=== PATIENT | female | born 1980 | race Caucasian/White ===

== ENCOUNTER 2022-06-10 15:21 | Outpatient (CLI) | payer OTHER, SELFPAY ==
--- NOTE | ~2022-06-10 | MM_ITS ---
EXAMINATION: MM screening andrea BI w jacques HISTORY: Screening TECHNIQUE: Craniocaudal and mediolateral oblique 3-D tomosynthesis images were obtained and synthetic 2-D images were generated. CAD analysis was submitted and interpreted. COMPARISON: No prior mammogram is available for comparison at this institution. BREAST PARENCHYMAL COMPOSITION: There are scattered areas of fibroglandular density. FINDINGS: There are focal asymmetries in the upper outer quadrant of the right breast. There are no s uspicious masses, calcifications or architectural distortion in the left breast to suggest malignancy . IMPRESSION: 1. Right breast asymmetry, upper outer quadrant. 2. Additional mammographic views and possible breast ultrasound are recommended. BI-RADS Category 0: Incomplete: Needs additional imaging evaluation. Reviewed, dictated and finalized at location B. [employer] SAL[employer] REP IMPRESSION: 1. Right breast asymmetry, upper outer quadrant. 2. Additional mammographic views and possible breast ultrasound are recommended . BI-RADS Category 0: Incomplete: Needs additional imaging evaluation.
== END 2022-06-10 15:22 | disposition home or self-care (01) ==
LOC: ANHIMG 15:22
PROVIDERS: PCP Family Medicine; Visit Provider Nurse Practitioner
DX: Z12.31 Encounter for screening mammogram for malignant neoplasm of breast (principal); R92.8 Other abnormal and inconclusive findings on diagnostic imaging of breast
CPT/HCPCS: 77063; 77067

== ENCOUNTER 2022-06-13 10:56 | Outpatient (CLI) | payer OTHER, SELFPAY ==
[2022-06-13 20:46] LABS: Alanine Aminotransferase 16 U/L (6-35); Albumin Level 4.5 g/dL (3.5-5.1); Alkaline Phosphatase 86 U/L (38-126); Anion Gap 7 mmol/L (8-16); Aspartate Amino Transferase 37 U/L (14-36); Bilirubin,Total 0.5 mg/dL (0.2-1.3); Blood Urea Nitrogen 9 mg/dL (7-17); Carbon Dioxide 25 mmol/L (22-30); Chloride 106 mmol/L (98-107); Cholesterol 194 mg/dL (0-200); Estimated Glomerular Filt Rate > 60; Glucose 83 mg/dL (65-110); HDL Direct 52 mg/dL; Potassium 3.9 mmol/L (3.4-5.0); Sodium 138 mmol/L (137-145); Triglycerides 127 mg/dL (<150)
[2022-06-13 20:49] LABS: Hematocrit 42.3 % (37.0-47.0); Hemoglobin 13.5 g/dL (12.0-15.0); Mean Corpuscular HGB Conc 31.9 g/dl (32-36); Mean Platelet Volume 9.3 fl (7.4-10.4); Platelet Count Result 341 k/mm3 (150-375); Red Cell Distribution Width 13.2 % (11.5-14.5); White Blood Count 7.9 K/mm3 (4.5-10.0)
[2022-06-13 20:56] LABS: LDL Cholesterol Direct 87 mg/dL
[2022-06-13 21:11] LABS: Vitamin D 25 Hydroxy 65.3 ng/mL
== END 2022-06-13 10:57 | disposition home or self-care (01) ==
LOC: ANHBWCLAB 10:58
PROVIDERS: PCP Family Medicine; Visit Provider Family Medicine
DX: Z00.00 Encounter for general adult medical examination without abnormal findings (principal); G43.909 Migraine, unspecified, not intractable, without status migrainosus
CPT/HCPCS: 36415; 80053; 80061; 82306; 85027

== ENCOUNTER 2022-07-08 12:12 | Outpatient (CLI) | payer OTHER, SELFPAY ==
--- NOTE | ~2022-07-08 | MM_ITS ---
EXAMINATION: MM diagnostic andrea RT w jacques HISTORY: Focal asymmetry reported in upper outer quadrant of right breast on 06/10/2022 screening andrea mogram TECHNIQUE: Additional 3-D tomosynthesis images of the right breast were performed and synthetic 2-D i mages were generated. CAD analysis was submitted and interpreted. COMPARISON: 06/10/2022 bilateral screening mammogram FINDINGS: The focal asymmetry of concern in the posterior inner aspect of the outer right breast on 1 08/11/2021 craniocaudal projection is not reproduced on these supplemental images. No suspicious mass or architectural distortion is detected. IMPRESSION: 1. No mammographic evidence of malignancy 2. Routine annual mammographic screening is recommended BI-RADS Category 1: Negative Reviewed, dictated and finalized at location A. [employer]
== END 2022-07-08 12:13 | disposition home or self-care (01) ==
LOC: ANHIMG 12:13
PROVIDERS: PCP Family Medicine; Visit Provider Nurse Practitioner
DX: R92.8 Other abnormal and inconclusive findings on diagnostic imaging of breast (principal)
CPT/HCPCS: 77061; 77065; G0279

== ENCOUNTER 2022-07-16 09:20 | Outpatient (CLI) | payer OTHER, SELFPAY ==
[2022-07-16 20:31] LABS: Alanine Aminotransferase 43 U/L (6-35); Albumin Level 4.3 g/dL (3.5-5.1); Alkaline Phosphatase 113 U/L (38-126); Aspartate Amino Transferase 55 U/L (14-36); Bilirubin,Total 0.2 mg/dL (0.2-1.3)
[2022-07-16 21:06] LABS: Hepatitis B Surface Antigen Negative (Negative)
[2022-07-16 21:12] LABS: HAV RESULT Negative (Negative); Hepatitis B Core IgM Result Negative (Negative)
[2022-07-17 00:43] LABS: Hepatitis C Virus Antibody Negative (Negative)
== END 2022-07-16 09:21 | disposition home or self-care (01) ==
PROVIDERS: PCP Family Medicine; Visit Provider Family Medicine
DX: R74.01 Elevation of levels of liver transaminase levels (principal)
CPT/HCPCS: 36415; 80074; 80076

== ENCOUNTER 2022-07-30 08:42 | Outpatient (CLI) | payer OTHER, SELFPAY ==
--- NOTE | ~2022-07-30 | US_ITS ---
EXAMINATION: US abdomen limited DATE: 07/30/2022 09:10 INDICATION: Abnormal levels of other serum enzymes TECHNIQUE: Multiple grayscale and Doppler ultrasound images of the abdomen were obtained. COMPARISON: 07/01/2016 FINDINGS: The head and body of the pancreas are normal. The pancreatic tail is obscured by bowel gas. The liver is normal with normal echogenicity and echotexture. No surface nodularity. Normal hepatope jet flow in the main portal vein. The gallbladder is normal with no abnormal wall thickening, pericho lecystic fluid or stones. The normal common bile duct measures 3 mm. There was no sonographic Hill sign. IMPRESSION: 1. No sonographic correlate for the patient's symptoms. Reviewed, dictated and finalized at location L. BUNDLER
== END 2022-07-30 08:43 | disposition home or self-care (01) ==
PROVIDERS: PCP Family Medicine; Visit Provider Family Medicine
DX: R74.8 Abnormal levels of other serum enzymes (principal)
CPT/HCPCS: 76705

== ENCOUNTER 2023-06-17 10:20 | Outpatient (CLI) | payer OTHER, SELFPAY ==
[2023-06-17 19:53] LABS: Hematocrit 40.8 % (37.0-47.0); Hemoglobin 12.7 g/dL (12.0-15.0); Mean Corpuscular HGB Conc 31.1 g/dl (32-36); Mean Corpuscular Hemoglobin 28.3 pg (26-34); Mean Corpuscular Volume 91.1 fl (80-100); Mean Platelet Volume 9.5 fl (7.4-10.4); Platelet Count Result 366 k/mm3 (150-375); Red Blood Count 4.48 M/mm3 (4.2-5.4); Red Cell Distribution Width 13.8 % (11.5-14.5); White Blood Count 8.4 K/mm3 (4.5-10.0)
[2023-06-17 20:18] LABS: Alanine Aminotransferase 20 U/L (6-35); Albumin Level 3.9 g/dL (3.5-5.1); Alkaline Phosphatase 147 U/L (38-126); Anion Gap 6 mmol/L (8-16); Aspartate Amino Transferase 32 U/L (14-36); Bilirubin,Total 0.4 mg/dL (0.2-1.3); Blood Urea Nitrogen 10 mg/dL (7-17); Calcium 8.6 mg/dL (8.4-10.2); Carbon Dioxide 23 mmol/L (22-30); Chloride 112 mmol/L (98-107); Cholesterol 166 mg/dL (0-200); Estimated Glomerular Filt Rate > 60; Glucose 85 mg/dL (65-110); HDL Direct 42 mg/dL; Potassium 4.1 mmol/L (3.4-5.0); Sodium 141 mmol/L (137-145); Triglycerides 129 mg/dL (<150)
[2023-06-17 20:29] LABS: LDL Cholesterol Direct 85 mg/dL
[2023-06-17 20:45] LABS: Thyroid Stimulating Hormone 0.401 uIU/mL (0.465-4.680)
== END 2023-06-17 10:21 | disposition home or self-care (01) ==
LOC: ANHBWCLAB 10:20
PROVIDERS: PCP Nurse Practitioner Adult Health; Visit Provider Nurse Practitioner Adult Health
DX: R63.5 Abnormal weight gain (principal); Z13.9 Encounter for screening, unspecified
CPT/HCPCS: 36415; 80053; 80061; 84443; 85027

== ENCOUNTER 2024-01-28 16:57 | Emergency (ER) | payer OTHER, SELFPAY ==
[2024-01-28 17:05] VITALS: BP 112/75; PULSE 107; RESP 18; TEMP 36.6; O2SAT 99
--- NOTE | 2024-01-28 17:25 | ED.URI ---
HPI - URI/Sore Throat General Chief Complaint: Upper Respiratory Infection Stated Complaint: throat/aches History of Present Illness HPI Narrative: 43 y/o female presented for c/o sore throat x3 days. Endorses nausea and body aches. Not taking anything for symptoms. Denies difficulty maintaining secretions, n/v/d/f/c. Related Data Home Medications Medication Instructions Recorded Confirmed drospirenone (contraceptive) 4 mg 1 tablet PO DAILY 01/28/24 01/28/24 (28) tablet (Slynd) Allergies Allergy/AdvReac Type Severity Reaction Status Date / Time Penicillins Allergy Mild Unknown Verified 01/28/24 17:10 Review of Systems Review of Systems: CONSTITUTIONAL: Denies fever, chills, or sweats. EYES: Denies visual changes, redness, or discharge. ENT: reports sore throat Denies rhinorrhea, congestion, or otalgia. CARDIOVASCULAR: Denies chest pain, palpitations, or edema. RESPIRATORY: Denies dyspnea. GASTROINTESTINAL: Denies abdominal pain, nausea, vomiting, or diarrhea. SKIN: Denies rash, itching, or wounds. MUSCULOSKELETAL: Denies back pain, joint pain, or myalgia. NEUROLOGIC: Denies headache PMFSH Family History Family History Mother No problems noted. 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 EYES: conjunctivae clear ENT: Mucous membranes moist. TM pearly antonio with normal light reflex bilaterally; no tragal tenderness. Oropharynx erythematous Tonsils enlarged 2+ with exudate. No drooling, no hoarseness, no trismus, uvula midline. No tripod positioning, hot potato voice, or soft palate swelling. NECK: Supple. No lymphadenopathy CHEST: Clear to auscultation, breath sounds equal. No respiratory distress, speaks in full sentences. HEART: Regular rate and rhythm. No murmur heard. SKIN: Warm, dry, no rash. NEURO: Alert and oriented x3. Course Course Emergency Course: Patient is aware of diagnosis, understands and agrees to treatment plan. Anticipatory guidance given. Patient agrees to follow-up as directed and is aware of reasons to seek care at the emergency department. Portions of this record may have been created with voice recognition software Level of Care: Express Care Visit Vital Signs Vital signs: Vital Signs Temperature 97.9 F 01/28/24 17:05 Pulse Rate 107 H 01/28/24 17:05 Respiratory Rate 18 01/28/24 17:05 Blood Pressure 112/75 01/28/24 17:05 Pulse Oximetry 99 01/28/24 17:05 Oxygen Delivery Room Air 01/28/24 17:05 Temperature 97.9 F 01/28/24 17:05 Pulse Rate 107 H 01/28/24 17:05 Respiratory Rate 18 01/28/24 17:05 Blood Pressure 112/75 01/28/24 17:05 Pulse Oximetry 99 01/28/24 17:05 Oxygen Delivery Room Air 01/28/24 17:05 MDM - URI/Sore Throat MDM Narrative Medical decision making narrative: pos strep result reviewed with pt. Advise supportive treatments. Patient is appropriate for outpatient treatment and follow-up. Differential Diagnosis Differential diagnosis: Likely upper respiratory infection, viral infection and pharyngitis Discharge Plan Discharge Clinical Impression: Strep pharyngitis Patient Disposition: Home, Self-Care Condition: Stable Instructions: Antibiotic Form, S
== END 2024-01-28 17:30 | disposition home or self-care (01) ==
PROVIDERS: Emergency Provider Nurse Practitioner Family; PCP Nurse Practitioner Adult Health
DX: J02.0 Streptococcal pharyngitis (principal)
CPT/HCPCS: 99213; G0463

== ENCOUNTER 2024-06-29 11:02 | Outpatient (CLI) | payer OTHER, SELFPAY ==
[2024-06-29 18:25] LABS: Hematocrit 41.7 % (37.0-47.0); Mean Corpuscular HGB Conc 31.2 g/dl (32-36); Mean Corpuscular Hemoglobin 28.4 pg (26-34); Mean Corpuscular Volume 91.2 fl (80-100); Mean Platelet Volume 9.1 fl (7.4-10.4); Platelet Count Result 375 k/mm3 (150-375); Red Blood Count 4.57 M/mm3 (4.2-5.4); Red Cell Distribution Width 14.9 % (11.5-14.5); White Blood Count 11.4 K/mm3 (4.5-10.0)
[2024-06-29 18:40] LABS: Alanine Aminotransferase 14 U/L (6-35); Alkaline Phosphatase 131 U/L (38-126); Anion Gap 4 mmol/L (4-12); Aspartate Amino Transferase 53 U/L (14-36); Bilirubin,Total 0.4 mg/dL (0.2-1.3); Blood Urea Nitrogen 11 mg/dL (7-17); Carbon Dioxide 25 mmol/L (22-30); Chloride 108 mmol/L (98-107); Cholesterol 170 mg/dL (0-200); Estimated Glomerular Filt Rate > 60; Glucose 80 mg/dL (65-110); HDL Direct 44 mg/dL; Potassium 4.1 mmol/L (3.4-5.0); Sodium 137 mmol/L (137-145); Triglycerides 191 mg/dL (<150)
[2024-06-29 18:51] LABS: LDL Cholesterol Direct 66 mg/dL
== END 2024-06-29 11:03 | disposition home or self-care (01) ==
LOC: ANHBWCLAB 11:03
PROVIDERS: PCP Nurse Practitioner Adult Health; Visit Provider Nurse Practitioner Adult Health
DX: Z13.220 Encounter for screening for lipoid disorders (principal); Z13.29 Encounter for screening for other suspected endocrine disorder; Z13.9 Encounter for screening, unspecified
CPT/HCPCS: 36415; 80053; 80061; 84443; 85027

== ENCOUNTER 2024-07-15 08:47 | Emergency (ER) | payer OTHER, SELFPAY ==
[2024-07-15 08:54] VITALS: BP 113/68; PULSE 94; RESP 20; TEMP 36.5; O2SAT 100
[2024-07-15 09:18] LABS: EDUAAPPEAR Cloudy; EDUABILI Negative (Negative); EDUABLOOD 2+ (Negative); EDUACOLOR1 Yellow; EDUAGLUCOSE Negative (Negative); EDUAKETONE Negative (Negative); EDUALEUKO 3+ (Negative); EDUANITRATE Negative (Negative); EDUAPROTEIN Trace (Negative); EDUASPGRAVITY 1.015
--- NOTE | 2024-07-15 09:24 | ED.FEMALEGU ---
HPI - Female Genitourinary General Chief complaint: Urogenital-Female Stated complaint: poss UTI Time Seen by Provider: 07/15/24 09:15 Source: patient, RN notes reviewed and old records reviewed Mode of arrival: ambulatory Limitations: no limitations History of Present Illness HPI Narrative: 44 year old female who presents to [facility] care with complaints of urinary burning and urgency for 2 day duration. Patient reports that she has had urinary tract infections in the past but she use to take cranberry pills and didn't have any infections for awhile. Patient reports no nausea or vomiting or any known fevers. Patient reports no CVA tenderness or any suprapubic pain or any visible blood. MD elicited complaint: UTI Onset (ago): day(s) (2) Location of symptoms: urethra Severity: moderate Quality of pain: burning Vaginal discharge: none Vaginal bleeding: none Related Data Allergies Allergy/AdvReac Type Severity Reaction Status Date / Time Penicillins Allergy Mild Unknown Verified 06/29/24 10:37 Review of Systems Review of Systems: CONSTITUTIONAL: Denies fever, chills, or sweats. CARDIOVASCULAR: Denies chest pain, palpitations, or edema. RESPIRATORY: Denies cough or dyspnea. GASTROINTESTINAL: Denies abdominal pain, nausea, vomiting, or diarrhea. GENITOURINARY: Reports dysuria, frequency, urgency. Denies flank pain or hematuria. SKIN: Denies rash or itching. MUSCULOSKELETAL: Denies back pain or myalgia. Denies CVA tenderness NEUROLOGIC: Denies headache All systems reviewed & are unremarkable except as noted in HPI and below PMFSH Past Medical History Medical History Anxiety and depression UTI (urinary tract infection) Surgical History Surgical History Previous section Family History Family History Mother No problems noted. 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 There is no relevant family history pertinent to the presenting complaint Exam Narrative: GENERAL: Well-appearing, well-nourished, and in no acute distress. HEAD: Normocephalic, atraumatic. NECK: Supple. no lymphadenopathy CHEST: Clear to auscultation. No respiratory distress.SAO2 100% on room air HEART: Regular rate and rhythm. No murmur heard. Normal peripheral pulses. ABDOMEN: Soft, nontender, nondistended, normal active bowel sounds. No CVA tenderness, reports burning and urgency with urination denies any CVA tenderness. EXTREMITIES: Normal range of motion. No edema. SKIN: Warm, dry, no rash. NEURO: No focal deficits. Alert and oriented x3. Course Course Emergency Course: Patient is aware of diagnosis, understands and agrees to treatment plan.? Anticipatory guidance given.? Patient agrees to follow-up as directed and is aware of reasons to seek care at the emergency department. Portions of this record may have been created with voice recognition software Level of Care: Express Care Visit Vital Signs Vital signs: Vital Signs Temperature 36.5 C 07/15/24 08:54 Pulse Rate 94 07/15/24 08:54 Respiratory Rate 20 07/15/24 08:54 Blood Pressure 113/68 07/15/24 08:54 Pulse Oximetry 100 07/15/24 08:54 Oxygen Delivery Room Air 07/15/24 08:54 Temperature 36.5 C 07/15/24 08:54 Pulse Rate 94 07/15/24 08:54 Respiratory Rate 20 07/15/24 08:54 Blood Pressure 113/68 07/15/24 08:54 Pulse Oximetry 100 07/15/24 08:54 Oxygen Delivery Room Air 07/15/24 08:54 MDM - Female Genitourinary MDM Narrative Medical decision making narrative: Exam findings and UA show no acute concerns or changes; patient is non-toxic appearing and is in no distress.? Patient is appropriate for outpatient treatment and follow-up. Differential Diagnosis Differential diagnosis: Likely urinary tract infection, cystitis and other (dysuria) Medical Records Attestation: I reviewed the patient's medical records. Lab Data Attestation: I reviewed the patient's lab results. Lab results narrative: urine dip Glucose negative, Bilirubin negative, Ketones negative, specific gravity 1.015, PH 6.0, Blood 2+, Urobilinogen 1.0,protein trace, Nitrite negative, Leukocyte 3+ Labs: Lab Results 07/15/24 Range/Units 09:10 POC Urine Color Yellow POC Urine Clarity Cloudy POC Urine pH 6.0 POC Ur Specif [place] 1.015 POC Urine Protein Trace (Negative) POC Ur Glucose (UA) Negative (Negative) POC Urine Ketones Negative (Negative) POC Urine Blood 2+ (Negative) POC Urine Nitrite Negative (Negative) POC Urine Bilirubin Negative (Negative) POC Urine Urobilinogen 1.0 POC U Leukocyte Esteras 3+ (Negative) Critical Care Time Critical Care Time Critical Care Time: No Discharge Plan Discharge Clinical Impression: UTI (urinary tract infection) Qualifiers: Urinary tract infection type: site unspecified Hematuria presence: with hematuria Qualified Code(s): N39.0 - Urinary tract infection, site not specified Patient Disposition: Home, Self-Care Condition: Stable Instructions: Antibiotic Form, Urinary Tract Infection in Women (ED) Additional Instructions: Increase fluids especially cranberry juice and water Avoid caffeine and carbonated beverages Antibiotic as directed Tylenol/ibuprofen for pain or fever Follow-up with her primary care provider if further problems or concerns Recheck if you have fever over 101, nausea and vomiting. If your symptoms persist, change or worsen significantly before you can contact your personal physician then please, without delay, go to the emergency department for further evaluation. Follow-up with PCP in 7-10 days or sooner if needed Patient Language: Ukrainian Prescriptions: New sulfamethoxazole-trimethoprim [Bactrim DS] 800-160 mg tablet 1 tablet PO Q12H Qty: 14 0RF No Action Slynd 4 mg (28) tablet See Rx Instructions .ROUTE .COMPLEX Qty: 28 11RF Dose Instruction: TAKE 1 TABLET BY MOUTH EVERY DAY Rx Instructions: TAKE 1 TABLET BY MOUTH EVERY DAY amitriptyline 100 mg tablet 100 mg PO QHS Qty: 90 1RF Follow-up/Referrals: Madison Dickerson APRN [Primary Care Provider] - Time of Disposition: 09:42 Quality [place] Coma Scale Eyes: Open Verbal: Oriented and Alert Motor: Follows Commands [place] Coma Total Score: 15
== END 2024-07-15 09:47 | disposition home or self-care (01) ==
PROVIDERS: Emergency Provider Registered Nurse; PCP Nurse Practitioner Adult Health
DX: N39.0 Urinary tract infection, site not specified (principal)
CPT/HCPCS: 81003; 87086; 99213; G0463

== ENCOUNTER 2024-12-29 09:51 | Outpatient (CLI) | payer OTHER, SELFPAY ==
--- OUTSIDE RECORDS SUMMARY | 2024-12-29 10:00 | XMS_ITS | Clinical Summary ---
Author Organization [facility] Address [address] [place] [address] Phone Care Team Providers Care Pre Wave Assembler Name Role Phone Yusuf Jones Primary Care Provider [phone] Allergies Active Allergy Reactions Criticality Noted Date Comments Penicillins Unknown 12/06/2015 Medications Vit-Fe Fumarate-FA ( VITAMIN PO) Take 1 Tab by mouth daily. Active FOLIC ACID PO Take by mouth. Active Norethindrone Acet-Ethinyl Est (JUNEL 07/19 PO) Take by mouth. Active omeprazole (PRILOSEC) 20 MG CAPSULE DELAYED RELEASE Take 1 Cap by mouth daily. 30 Cap 01/27/2018 Active FLUoxetine (PROZAC) 20 MG Capsule Take 20 mg by mouth daily. Active Social History Tobacco Use Types Packs/Day Years Used Date Smoking Tobacco: Former Smokeless Tobacco: Never Alcohol Use Standard Drinks/Week Comments No 0 (1 standard drink = 0.6 oz pur e alcohol) Comments No Sex and Gender Information Value Date Recorded Sex Assigned at Not on file Legal Sex Female 8:48 PM CDT Gender Identity Not on file Sexual Orientation Not on file Last Filed Vital Signs Vital Sign Reading Time Taken Comments Blood Pressure 103/64 06/05/2022 6:20 PM FUELS ENGINEER Pulse 80 06/05/2022 6:20 PM FUELS ENGINEER Temperature 36.2 C (97.2 F) 06/05/2022 4:31 PM FUELS ENGINEER Respiratory Rate 16 06/05/2022 4:31 PM FUELS ENGINEER Oxygen Saturation 100% 06/05/2022 6:20 PM FUELS ENGINEER Inhaled Oxygen Concentration - - Weight 59 kg (130 lb) 06/05/2022 4:31 PM FUELS ENGINEER Height 162.6 cm (5' 4) 06/05/2022 4:31 PM FUELS ENGINEER Body Mass Index 22.31 06/05/2022 4:31 PM FUELS ENGINEER Plan of Treatment Health Maintenance Due Date Last Done Comments Hepatitis C Virus (HCV) Screening 1982 Human Papillomavirus (HPV) Immunization (1 - 3-dose series) 1997 Hepatitis B Immunization (1 of 3 - 19+ 3-dose series) 2001 SARS-COV-2 Immunization ( - 2023- season) 2024 Influenza Immunization (Season Ended) 2025 Respiratory Syncytial Virus (RSV) Immunization (Adult) (1 - 1-dose 75+ series) 2057 DTaP/Tdap/Td Immunization Discontinued 2017, 05/07/2016, 03/15/1988, Additional history exists TdaP Immunization Completed 07/18/2017, 05/07/2016 Meningococcal Immunization (ACWY) Aged Out No longer eligible based on patient's age to complete this topic Pneumococcal Immunization Combined Aged Out No longer eligible based on patient's age to complete this topic Rotavirus Immunization Aged Out No lo nger eligible based on patient's age to complete this topic Insurance MEDICAID [place] Care Teams Pre Wave Assembler Relationship Specialty Start Date End Date Yusuf Jones PAC [address] [place] [address] PCP - General Physician Fruit Grader Operator 12/06/15
[2024-12-29 18:56] LABS: Hematocrit 42.6 % (37.0-47.0); Hemoglobin 13.0 g/dL (12.0-15.0); Mean Corpuscular HGB Conc 30.5 g/dl (32-36); Mean Corpuscular Hemoglobin 28.0 pg (26-34); Mean Corpuscular Volume 91.8 fl (80-100); Platelet Count Result 378 k/mm3 (150-375); Red Blood Count 4.64 M/mm3 (4.2-5.4); White Blood Count 9.8 K/mm3 (4.5-10.0)
[2024-12-29 19:05] LABS: Alanine Aminotransferase 19 U/L (6-35); Albumin Level 3.9 g/dL (3.5-5.1); Alkaline Phosphatase 113 U/L (38-126); Anion Gap 8 mmol/L (4-12); Aspartate Amino Transferase 77 U/L (14-36); Bilirubin,Total 0.3 mg/dL (0.2-1.3); Blood Urea Nitrogen 15 mg/dL (7-17); Calcium 8.9 mg/dL (8.4-10.2); Carbon Dioxide 25 mmol/L (22-30); Chloride 108 mmol/L (98-107); Cholesterol 170 mg/dL (0-200); Estimated Glomerular Filt Rate > 60; Glucose 90 mg/dL (65-110); HDL Direct 38 mg/dL; Potassium 4.5 mmol/L (3.4-5.0); Sodium 141 mmol/L (137-145); Total Protein 7.5 g/dL (6.3-8.2); Triglycerides 104 mg/dL (<150)
[2024-12-29 19:22] LABS: Free T4 Free Thyroxine. 1.21 ng/dL (0.78-2.19)
[2024-12-29 19:31] LABS: Hemoglobin A1C. 5.6 % (<5.7)
[2024-12-29 19:39] LABS: Thyroid Stimulating Hormone 0.803 uIU/mL (0.465-4.680)
[2024-12-29 20:31] LABS: Vitamin B12. 299.0 pg/mL (239-931)
== END 2024-12-29 09:52 | disposition home or self-care (01) ==
LOC: ANHBWCLAB 09:52
PROVIDERS: PCP Nurse Practitioner Adult Health; Visit Provider Nurse Practitioner Adult Health
DX: Z00.00 Encounter for general adult medical examination without abnormal findings (principal); R63.5 Abnormal weight gain; R53.83 Other fatigue
CPT/HCPCS: 36415; 80053; 80061; 82306; 82607; 83036; 84439; 84443; 85027

== ENCOUNTER 2025-06-13 16:45 | Emergency (ER) | payer OTHER, SELFPAY ==
[2025-06-13 16:50] VITALS: BP 116/82; PULSE 95; RESP 20; TEMP 36.7; O2SAT 100
--- NOTE | 2025-06-13 17:26 | ED_ITS ---
HPI - Female Genitourinary General Chief complaint: Urogenital-Female Stated complaint: uti Time Seen by Provider: 06/13/25 17:20 Source: patient, RN notes reviewed and old records reviewed Mode of arrival: ambulatory Limitations: no limitations History of Present Illness HPI Narrative: 45 year old female who presents to [facility] care with complaints of burning, frequency, and urgency of urination with pain at the end of urination reported since yesterday, Patient reports that she has been taking cranberry pills and has increased her water intake. Patient denies any supra pubic or any back pain or any CVA tenderness. She reports no fevers chills or sweats pr any nausea, vomiting. or diarrhea. MD elicited complaint: UTI Onset (ago): day(s) (yesterday) Location of symptoms: urethra Severity: moderate Vaginal discharge: none Vaginal bleeding: none Treatment prior to arrival: other (cranberry pills) Related Data Allergies Allergy/AdvReac Type Severity Reaction Status Date / Time Penicillins Allergy Mild Unknown Verified 06/13/25 17:07 Review of Systems Review of Systems: CONSTITUTIONAL: Denies fever, chills, or sweats. CARDIOVASCULAR: Denies chest pain, palpitations, or edema. RESPIRATORY: Denies cough or dyspnea. GASTROINTESTINAL: Denies abdominal pain, nausea, vomiting, or diarrhea. GENITOURINARY: Reports dysuria, frequency, urgency. Denies flank pain or hematuria. SKIN: Denies rash or itching. MUSCULOSKELETAL: Denies back pain or myalgia. Denies CVA tenderness NEUROLOGIC: Denies headache All systems reviewed & are unremarkable except as noted in HPI and below PMFSH Past Medical History Medical History Anxiety and depression UTI (urinary tract infection) Surgical History Surgical History Previous section Family History Family History Mother No problems noted. 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 There is no relevant family history pertinent to the presenting complaint Exam Narrative: GENERAL: Well-appearing, well-nourished, and in no acute distress. HEAD: Normocephalic, atraumatic. NECK: Supple. no lymphadenopathy CHEST: Clear to auscultation. No respiratory distress.SAO2 100% on room air HEART: Regular rate and rhythm. No murmur heard. Normal peripheral pulses. ABDOMEN: Soft, nontender, nondistended, normal active bowel sounds. No CVA tenderness, urinary burning frequency and urgency reported EXTREMITIES: Normal range of motion. No edema. SKIN: Warm, dry, no rash. NEURO: No focal deficits. Alert and oriented x3. Course Course Level of Care: Express Care Visit Vital Signs Vital signs: Vital Signs Temperature 36.7 C 06/13/25 16:50 Pulse Rate 95 06/13/25 16:50 Respiratory Rate 20 06/13/25 16:50 Blood Pressure 116/82 06/13/25 16:50 Pulse Oximetry 100 06/13/25 16:50 Oxygen Delivery Room Air 06/13/25 16:50 Temperature 36.7 C 06/13/25 16:50 Pulse Rate 95 06/13/25 16:50 Respiratory Rate 20 06/13/25 16:50 Blood Pressure 116/82 06/13/25 16:50 Pulse Oximetry 100 06/13/25 16:50 Oxygen Delivery Room Air 06/13/25 16:50 reviewed MDM MDM Narrative Medical decision making narrative: 45 year old female with UTI symptoms with blood and leukocytes noted in urine with specimen cloudy in appearance. Patient will be treated with Pyridium and Bactrim DS with patient appropriate for outpatient care with follow up as needed. Anticipatory care and reviewed reasons to seek care in ED reviewed with patietn with understanding voiced. Differential Diagnosis Differential Diagnosis: Differential diagnostic considerations for female urogenital? issues include urinary tract infection, bacterial vaginosis, cervicitis, ovarian cyst, vaginitis, STI exposure, ovarian torsion, ectopic , cyst of Bartholin?s gland, cystitis, dysmenorrhea.?? Lab Data MDM Lab Attestation statement: I personally reviewed the patient's lab results. Lab results narrative: glucose negative bilirubin negative ketone negative specific gravity 1.010 blood 2+ pH 6.5 protein negative, urobilinogen 0.2, nitrite negative, leukocyte 1+ yellow cloudy Labs: Lab Results 06/13/25 Range/Units 17:09 POC Urine Color Yellow POC Urine Clarity Cloudy POC Urine pH 6.5 POC Ur Specif [place] 1.010 POC Urine Protein Negative (Negative) POC Ur Glucose (UA) Negative (Negative) POC Urine Ketones Negative (Negative) POC Urine Blood 2+ (Negative) POC Urine Nitrite Negative (Negative) POC Urine Bilirubin Negative (Negative) POC Urine Urobilinogen 0.2 POC U Leukocyte Esteras 1+ (Negative) reviewed Critical Care Time Critical Care Time Critical Care Time: No Discharge Plan Discharge Clinical Impression: Urinary tract infection Qualifiers: Urinary tract infection type: site unspecified Hematuria presence: with hematuria Qualified Code(s): N39.0 - Urinary tract infection, site not specified Patient Disposition: Home Condition: Stable Instructions: Antibiotic Form, Urinary Tract Infection in Women (ED) Additional Instructions: Increase fluids especially cranberry juice and water Avoid caffeine and carbonated beverages Antibiotic as directed Medicine as directed--cautioned it will cause your urine to be bright orange Tylenol/ibuprofen for pain or fever Follow-up with her primary care provider if further problems or concerns Recheck if you have fever over 101, nausea and vomiting. antibiotic as prescribed take all doses If your symptoms persist, change or worsen significantly before you can contact your personal physician then please, without delay[facility] Follow-up with PCP in 7-10 days or sooner if needed Patient Language: Vietnamese Prescriptions: New sulfamethoxazole-trimethoprim [Bactrim DS] 800-160 mg tablet 1 tablet PO Q12H Qty: 14 0RF phenazopyridine [Pyridium] 200 mg tablet 200 mg PO TID PRN (Reason: pain) Qty: 6 0RF No Action fluoxetine 20 mg capsule 20 mg PO DAILY Qty: 90 3RF amitriptyline 100 mg tablet 100 mg PO QHS Qty: 90 1RF Slynd 4 mg (28) tablet See Rx Instructions .ROUTE .COMPLEX Qty: 28 11RF Dose Instruction: TAKE 1 TABLET BY MOUTH EVERY DAY Rx Instructions: TAKE 1 TABLET BY MOUTH EVERY DAY ibuprofen 800 mg tablet See Rx Instructions .ROUTE .COMPLEX Qty: 90 3RF Dose Instruction: 800 MG ORALLY THREE TIMES A DAY NEEDED FOR PAIN Rx Instructions: 800 MG ORALLY THREE TIMES A DAY NEEDED FOR PAIN Follow-up/Referrals: Madison Dickerson APRN [Primary Care Provider, [facility]] Time of Disposition: 17:36 Quality [place] Coma Scale Eyes: Open Verbal: Oriented and Alert Motor: Follows Commands [place] Coma Total Score: 15
[2025-06-13 18:01] LABS: EDUAAPPEAR Cloudy; EDUABILI Negative (Negative); EDUABLOOD 2+ (Negative); EDUACOLOR1 Yellow; EDUAGLUCOSE Negative (Negative); EDUAKETONE Negative (Negative); EDUALEUKO 1+ (Negative); EDUANITRATE Negative (Negative); EDUAPH 6.5; EDUAPROTEIN Negative (Negative); EDUASPGRAVITY 1.010; EDUAUROBILI 0.2
--- OUTSIDE RECORDS SUMMARY | 2025-06-13 18:19 | XMS_ITS | Data Portability ---
Author Organization [facility] Address [address] [place] [address] Assessment Encounter Date Assessment Date Assessment LastModified by Organization Details LastModified Time 04/01/2022 04/01/2022 Annual gynecological exam performed. Patient will come back in a year unless there are new symptoms. negro Not available 04/01/2022 09:34:41 Plan of Treatment Reminders Order Date Submit Date Provider Last Modified By Organization Details Last Modified Time Details Appointments None recorded . Lab None recorded . Referral None recorded . Procedures None recorded . Surgeries None recorded . Imaging MAMMO, screenin g, bilatera l 2021 022 negro [facility], [address], [address] [address], [place], [address], 14:53:29 Medication Orders Slynd 4 mg (28) tablet 2021 ATHENAFAX [facility]Pharmacy #[id number], [address] [place], [address], 16:20:36 fluoxeti ne 20 mg capsule 2021 022 [id number], [address] [place], [address], 10:00:27 Slynd 4 mg (28) tablet 2021 022 llamay [facility]/Pharmacy #[id number], [address] [place], [address], 2 16:24:04 fluoxeti ne 20 mg capsule 2020 021 SAKSHI [facility]/Pharmacy #[id number], [address] [place], [address], 1 10:07:52 Junel FE 07/19 (28) 1 mg-20 mcg (21)/75 mg (7) tablet 2020 021 vschroedter [facility]/Pharmacy #[id number], [address] [place], [address], 2 09:35:06 Patient TargetsNo targets recorded. Patient InstructionsNo instructions recorded. Reason for Referral None Reported. Results Created Date Observation Date Name Description Value Unit Range Abnormal Flag Note LastModifiedBy Organization Detail LastModifiedTime 02/02/20 20 02/04/2020 pap, LB Pap test thin prep Negati ve for Intrae pithel ial Lesion or Malign surekha normal ACCES LAQUITA #: [id number] Sourc e: Cervi aleksander/E ndoce rvica l LMP: Date Taken : 02/01 Speci men Type: ThinP rep Vial Date Repor rasheeda: Clini aleksander Data: Cytot ech: [address] [place], [place]( CP) Date Repor rasheeda: Speci men Adequ acy: Satis facto ry for evalu ation Endoc ervic al/tr ansfo rmati on zone compo nent prese nt Gener al Categ oriza tion: NEGAT DANIELLE FOR INTRA EPITH ELIAL LESIO N OR MALIG SHIRLEY This speci men has been zackery zed by the ThinP rep Imagi ng Syste m, an inter activ e compu ter syste m which carlos ts the lab in the [facility] of ThinP rep Pap Test slide s. Follo wing imagi ng, the slide was revie wed by a Cytot echno logis t and/o r Patho logis t. D N A A S S A Y S R E P O R T TEST NAME RESUL TS ----- ---- ----- -- HPV High Risk El n (TMA) ThinP rep Vial The human papil lomav irus (HPV) High Risk Scree n is an FDA-a pprov ed in-vi tro ampli fied nucle ic acid test for the quali tativ e detec tion of E6/E7 viral mRNA. Resul ts shoul d be corre lated with patie nt prese ntati on, histo ry, cervi aleksander cytol ogy and other clini aleksander and labor atory findi ngs. See https ://[employer]/s ites/ defau lt/fi les/-0 - [id number] _002_ .pd f for donnie mcgee infor cindy n. Test perfo rmed by [employer], d/b/a [facility]oup, [address], [place] [address] , Joe Cox ra, DO, Labor atorVirtual Iron Software Direst. [facility]. HPV High Risk *HPV NOT DETEC RASHEEDA (TYPE S 16, 18, 31, 33, 35, 39, 45, 51, 52, 56, 58, 59, 66, 68) *HPV: The human papil lomav irus (HPV) High Risk El n is an FDA-a pprov ed in-vi tro ampli fied nucle ic acid test for the quali tativ e detec tion of E6/E7 viral mRNA. Resul ts jason d be corre lated with patie nt prese ntati on, histo ry, cervi aleksander cytol ogy and other clini aleksander and labor atory findi ngs. See https ://[employer]/s ites/ defau lt/fi les-0 AW- [id number] _002_ 01.pd f for donnie er infor matio n. Test perfo rmed by [employer], d/b/a [facility] roup, [address], [place] [address] , Joe Cox ra, DO, Labor atory Dire tor. End of Repor t Techn ical servi syl provi ded by Ass iat Patho logis [employer] [facility], d/b/a PathG snehal, [address] [facility] [address] [place] [address] Raman Cowart MD, [facility] tor. Case revie wed and diagn osis rende red at [facility] iated Patho logis [employer], d/b/a Path [employer], [address] [facility] [address] [place] [address] Raman Cowart MD, [facility] tor. CONFI DENTI AL Not Available [facility]) [address] [facility] [address], [place], [address], 02/04/2020 14:06:13 02/02/20 20 02/04/2020 HPV DNA, high- risk HPV high risk NOT DETECT ED normal Not Available [facility] ([facility]) [address] [place] [address], [place], [address], 02/04/2020 14:06:13 03/27/20 21 03/27/2021 IMAGE GUIDE D PAP AND HPV REGAR DLESS image guided Pap, HPV regardless of Pap result SEE RESULT S BELOW CASE REPOR T: Cytol ogy Gynec ologi aleksander Repor t Case: [id number] Autho garth g Provi vanesa: Keyonna Torres CNM Colle cted: 03/27 1145 Order ing Locat ion: [place] Patho logy Recei diogo: 03/28 0104 First Scree n: Rocio Peña , [place] Speci men: Scree lori Pap - Image d, Cervi x STATE MENT OF ADEQU ACY: Satis facto ry for evalu ation Trans forma tion zone compo nent prese nt FINAL DIAGN OSIS: Negat danielle for Intra epith elial Lesio n or Malig shirley (NIL) Elect raj king donovan d by Rocio Peña , [place] on 2020 at 6:26 AM ----- ----- ----- ----- ----- ----- ----- ----- ----- ----- ----- ----- ----- ----- ----- ----- ----- ---- HPV RESUL TS: HPV mRNA E6/E7 : No HPV mRNA Detec rasheeda NOTE: This high risk HPV mRNA assay detec ts fourt een high- risk HPV types (16, 18, 31, 33, 35, 39, 45, 51, 52, 56, 58, 59, 66, 68) witho ut diffe renti ation . COMME NT: Note: This speci men was revie wed by a Cytot echno logis t and/o r Patho logis t (as indic ated in this repor t) after evalu ation using the Thinp rep Imagi ng Syste m. CLINI ALEKSANDER INFOR MATIO N: Menst rual Statu s: LMP (if appli cable ): 020 Clini aleksander Histo ry/Pr eviou s Pap: Type of Neopl kimberley (if appli cable ): Signi fican t Clini aleksander Findi ngs: Other Histo ry: Hormo eboni (if appli cable ): PAP EDUCA ROSIO L NOTE: The Pap Test is a scree lori test with an inher ent false negat danielle rate. Liqui d-bas e sampl ing may decre ase, but will not elimi darnell, false negat danielle resul ts. A negat danielle resul t does not precl ude the prese nce and/o r devel opmen t of disea se, since the prese nce of abnor mal cells in the sampl e depen ds on the locat ion of the lesio n and sampl ing techn ique. Navid nued regul ar scree lori is the best metho d of cance r preve ntion . If repor rasheeda cytol ogic findi ng do not corre late with physi aleksander and/o r histo rical findi ngs, furth er inves tigat ion is recom zak d, as clini kan reza nted. Not Available [facility] (Lab) [address], [place], [address], 04/01/2021 07:28:40 04/01/20 22 04/01/2022 IMAGE GUIDE D PAP AND HPV REGAR DLESS image guided Pap, HPV regardless of Pap result SEE RESULT S BELOW CASE REPOR T: Cytol ogy Gynec ologi aleksander Repor t Case: [id number] Autho zacharyanderson erickson Provi vanesa: Malka Wilson, [employer] Colle cted: 04/01 1528 Order ing Locat ion: [place] Patho logy Recei diogo: 04/02 0734 First El n: Torin Valladares am, [place] Speci men: El sandoval Pap - Image d, Cervi x STATE MENT OF ADEQU ACY: Satis facto ry for evalu ation Trans forma tion zone compo nent prese nt FINAL DIAGN OSIS: Negat danielle for Intra epith elial Tiburcio laureano or Wendy santos (NIL) . Elect raj king donovan d by Torin Valladares am, [place] on 04/08 at 8:10 AM ----- ----- ----- ----- ----- ----- ----- ----- ----- ----- ----- ----- ----- ----- ----- ----- ----- ---- HPV RESUL TS: HPV mRNA E6/E7 : No HPV mRNA Detec rasheeda NOTE: This high risk HPV mRNA assay detec ts fourt een high- risk HPV types (16, 18, 31, 33, 35, 39, 45, 51, 52, 56, 58, 59, 66, 68) witho ut diffe renti ation . COMME NT: Note: This speci men was revie wed by a Cytot echno logis t and/o r Patho logis t (as indic ated in this repor t) after evalu ation using the Thinp rep Imagi ng Syste m. CLINI ALEKSANDER INFOR MATIO N: Menst rual Statu s: LMP (if appli cable ): Clini aleksander Histo ry/Pr eviou s Pap: Type of Neopl kimberley (if appli cable ): Signi fican t Clini aleksander Findi ngs: Other Histo ry: Hormo eboni (if appli cable ): PAP EDUCA ROSIO L NOTE: The Pap Test is a scree lori test with an inher ent false negat danielle rate. Liqui d-bas ed sampl ing may decre ase, but will not elimi darnell, false negat danielle resul ts. A negat danielle resul t does not precl ude the prese nce and/o r devel opmen t of disea se, since the prese nce of abnor mal cells in the sampl e depen ds on the locat ion of the lesio n and sampl ing techn ique. Navid nued regul ar scree lori is the best metho d of cance r preve ntion . If repor rasheeda cytol ogic findi ng do not corre late with physi aleksander and/o r histo rical findi ngs, furth er inves tigat ion is recom zak d, as clini kan warra nted. Not Available [facility] [address] [place], [address], 04/08/2022 09:11:58 04/01/20 22 04/01/2022 TRICH OMONA S VAGIN JAYY (RRNA ) trichomonas vaginalis ribosomal RNA (rrna) Negati ve negati ve Not Available [facility] [address] [place], [address], 04/08/2022 09:11:58 04/01/20 22 04/01/2022 CT/GC (CHRISTINE) , THINP REP VIAL chlamydia trachomatis, PCR Negati ve negati ve Not Available [facility] [address] [place], [address], 04/08/2022 09:11:59 04/01/20 22 04/01/2022 CT/GC (CHRISTINE) , THINP REP VIAL neisseria gonorrhoeae, PCR Negati ve negati ve Not Available [facility] [address] [facility] [place], [address], 04/08/2022 09:11:59 06/11/20 22 06/10/2022 MAMMO , scree lori, bilat eral No observ ation record ed. [address] [place] [address], [address], 06/13/2022 11:05:23 06/11/20 22 06/10/2022 MAMMO , scree lori, bilat eral No observ ation record ed. [address], [address], 06/13/2022 11:05:23 07/08/19 23 07/08/2022 MAMMO , diagn ostic , unila teral No observ ation record ed. [address] [place] [address], [id number], 07/08/2022 20:23:37 Result Notes None recorded. Problems Name Problem SNOMED Code Status Onset Date Resolution Date Notes Provider Name and Address Organization Details Recorded Time No current problems or disabili ty 691676374 Active Jeniffer Venegas [facility] 2 16:01:21 Amenorrh ea 91220515 Completed 201503/22/2021 Amenorrh ea, unspecif ied;Prac forrest ID: 0001 Nayely jo, [facility] 1 13:48:00 Pregnanc y detectio n examinat ion Completed 201503/22/2021 Encounte r for pregnanc y test, result positive ;Practic e ID: 0001 [facility] 13:48:50 Uterine size for dates discrepa ncy Completed 201503/22/2021 Uterine size-david e discrepa ncy, first trimeste r;Practi ce ID: 0001 Nayely jo, [facility] 13:48:14 Gestatio n less than 9 weeks [id number] Completed 201503/22/2021 Less than 8 weeks gestatio n of pregnanc y;Practi ce ID: 0001 Nayely jo, [facility] 13:48:32 Abscess of trunk [id number] Completed 201503/22/2021 Cutaneou s abscess of trunk, unspecif ied;Prac forrest ID: 0001 Nayely jo, [facility] 13:48:41 Pregnanc y-induce d hyperten laquita Completed 201503/22/2021 Gestatio nal htn w/o signific ant proteinu susan, unsp trimeste r;Practi ce ID: 0001 Nayely jo, [facility] 13:48:12 heart finding Completed 201503/22/2021 Abnlt in heart rate and rhythm comp labor and delivery ;Practic e ID: 0001 Nayely jo, [facility] 13:48:18 Single live from singleto n pregnanc y [id number] Completed 201503/22/2021 Single live ;Pr actice ID: 0001 Nayely jo, [facility] 13:48:06 Single liveborn born in hospital by section [id number] Completed 201603/22/2021 Single liveborn delivere d by c section; Recorded Elsewher e: No Locat ion: Zay adkins [facility] S ource: EHR Personal Banking Advisor nelda: N Practi ce ID: 0001 Mukund lable Time: 09:45:00 AM Nayely jo, [facility] 13:48:35 Non-prot einuric hyperten laquita of pregnanc y [id number] Completed 201603/22/2021 Gestatnl htn without signific ant protein, comp the puerp;Re corded Elsewher e: No Locat ion: [facility] S ource: EHR Personal Banking Advisor nelda: N Gissellti ce ID: 0001 Mukund lable Time: 11:00:00 AM Nayely jo, [facility] 13:48:21 Depressi ve disorder [id number] Completed 201603/22/2021 Depressi on NOS;Benito rded Elsewher e: No Locat ion: [facility] S ource: EHR Personal Banking Advisor nelda: Aaliyah Borreroti ce ID: 0001 Mukund lable Time: 11:00:00 AM Nayely jo, [facility] 13:48:31 Mental disorder in mother complica ting pregnanc y [id number] Completed 201603/22/2021 post depressi on;Recor ded Elsewher e: No Locat ion: [facility] S ource: EHR Personal Banking Advisor nelda: N Gissellti ce ID: 0001 Mukund lable Time: 09:30:00 AM Nayely jo, [facility] 13:48:[address] Concept Completed 201603/22/2021 Encntr for general adult medical exam w/o abnormal findings ;Recorde d Elsewher e: No Locat ion: [facility] S ource: EHR Personal Banking Advisor nelda: N Gissellti ce ID: 0001 Mukund lable Time: 09:30:00 AM Nayely jo, [facility] 13:48:26 Antenata l care: multipar ous, older than 35 years [id number] Completed 201603/22/2021 Supervis ion of elderly multigra sylwia, second trimeste r;Record ed Elsewher e: No Locat ion: Yesseniasujit vincenzo [facility] S ource: EHR Personal Banking Advisor nelda: N Practi ce ID: 0001 Mukund lable Time: 09:15:00 AM Nayely Pearson null, [facility] 13:48:05 Gestatio n period, 20 weeks [id number] Completed 201603/22/2021 20 weeks gestatio n of pregnanc y;Record ed Elsewher e: No Locat ion: [facility] S ource: EHR Personal Banking Advisor nelda: N Practi ce ID: 0001 Mukund lable Time: 09:15:00 AM Nayely Freistatt null, [facility] 13:48:10 Gestatio n period, 24 weeks [id number] Completed 201603/22/2021 24 weeks gestatio n of pregnanc y;Record ed Elsewher e: No Locat ion: [facility] S ource: EHR Personal Banking Advisor nelda: N Gissellti ce ID: 0001 Mukund lable Time: 08:30:00 AM Nayely Michel sandro, [facility] 13:48:24 finding Completed 201603/22/2021 Matern care for oth or susp poor fetl grth, 2nd tri, unsp;Rec orded Elsewher e: No Locat ion: [facility] S ource: EHR Personal Banking Advisor nelda: N Practi ce ID: 0001 Mukund lable Time: 08:30:00 AM Nayely Pearson null, [facility] 13:48:15 Medical examinat ion for suspecte d conditio n Completed 201603/22/2021 Encounte r for suspecte d problem with growth ruled out;Benito rded Elsewher e: No [facility]: EHR Personal Banking Advisor nelda: N Practi ce ID: 0001 Mukund lable Time: 08:30:00 AM Nayely jo, [facility] 13:48:09 Gestatio n period, 30 weeks [id number] Completed 201603/22/2021 30 weeks gestatio n of pregnanc y;Record ed Elsewher e: No [facility]: EHR Personal Banking Advisor nelda: N Practi ce ID: 0001 Mukund lable Time: 11:15:00 AM Nayely jo, [facility] 13:48:49 Gestatio n period, 31 weeks [id number] Completed 201603/22/2021 31 weeks gestatio n of pregnanc y;Record ed Elsewher e: No Locat ion: [facility] S ource: EHR Personal Banking Advisor nelda: N Practi ce ID: 0001 Mukund lable Time: 08:00:00 AM Nayely jo, [facility] 13:48:45 Gestatio n period, 32 weeks [id number] Completed 201603/22/2021 32 weeks gestatio n of pregnanc y;Record ed Elsewher e: No Locat ion: [facility] S ource: EHR Personal Banking Advisor nelda: N Practi ce ID: 0001 Mukund lable Time: 08:30:00 AM Nayely jo, [facility] 13:48:51 Gestatio n period, 33 weeks [id number] Completed 201603/22/2021 33 weeks gestatio n of pregnanc y;Record ed Elsewher e: No Locat ion: [facility] S ource: EHR Personal Banking Advisor nelda: N Practi ce ID: 0001 Mukund lable Time: 08:30:00 AM Nayely jo, [facility] 13:48:52 Gestatio n period, 34 weeks [id number] Completed 201603/22/2021 34 weeks gestatio n of pregnanc y;Record ed Elsewher e: No Locat ion: Zay [facility] S ource: EHR Personal Banking Advisor nelda: N Practi ce ID: 0001 Mukund lable Time: 08:30:00 AM Nayely Michel sandro, [facility] 13:47:56 Gestatio n period, 35 weeks [id number] Completed 201603/22/2021 35 weeks gestatio n of pregnanc y;Record ed Elsewher e: No [facility]: EHR Personal Banking Advisor nelda: N Practi ce ID: 0001 Mukund lable Time: 09:30:00 AM Nayely Michel sandro, [facility] 13:48:55 Gestatio n period, 36 weeks [id number] Completed 201603/22/2021 36 weeks gestatio n of pregnanc y;Record ed Elsewher e: No [facility]: EHR Personal Banking Advisor nelda: N Gissellti ce ID: 0001 Mukund lable Time: 10:00:00 AM Nayely Michel sandro, [facility] 13:48:44 Gestatio n period, 37 weeks [id number] Completed 201703/22/2021 37 weeks gestatio n of pregnanc y;Record ed Elsewher e: No [facility] S ource: EHR Personal Banking Advisor nelda: N Practi ce ID: 0001 Mukund lable Time: 08:30:00 AM Nayely Freistatt sandro, [facility] 13:48:33 finding Completed 201703/22/2021 Matern care for oth or susp poor fetl grth, third tri, unsp;Rec orded Elsewher e: No [facility]: EHR Personal Banking Advisor nelda: N Practi ce ID: 0001 Mukund lable Time: 10:00:00 AM Nayely Michel jo, [facility] 13:48:17 Normal pregnanc y in theresegra sylwia [id number] Completed 201703/22/2021 Encounte r for suprvsn of normal pregnanc y, third trimeste r;Record ed Elsewher e: No Locat ion: [facility] S ource: EHR Personal Banking Advisor nelda: N Practi ce ID: 0001 Mukund lable Time: 10:45:00 AM Nayely jo [facility] 13:48:36 Gestatio n period, 38 weeks [id number] Completed 201703/22/2021 38 weeks gestatio n of pregnanc y;Record ed Elsewher e: No Locat ion: [facility] S ource: EHR Personal Banking Advisor nelda: N Practi ce ID: 0001 Mukund lable Time: 09:30:00 AM Nayely jo [facility] 13:48:01 Gestatio n period, 39 weeks [id number] Completed 201703/22/2021 39 weeks gestatio n of pregnanc y;Record ed Elsewher e: No Locat ion: [facility] S ource: EHR Personal Banking Advisor nelda: N Practi ce ID: 0001 Mukund lable Time: 09:30:00 AM Nayely jo [facility] 13:48:54 Lochia finding Completed 201703/22/2021 Encounte r for routine postpart um follow-u p;Record ed Elsewher e: No Locat ion: [facility] S ource: EHR Personal Banking Advisor nelda: N Practi ce ID: 0001 Mukund lable Time: 09:00:00 AM Nayely jo [facility] 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 13:48:28 Screenin g for malignan t neoplasm of cervix Completed 201703/22/2021 Screenin g for malignan t neoplasm s of the cervix;R ecorded Elsewher e: No Locat ion: [facility] S ource: EHR Personal Banking Advisor nelda: N Practi ce ID: 0001 Mukund lable Time: 09:30:00 AM [facility] 13:48:08 Secondar y amenorrh ea [id number] Completed 201703/22/2021 Secondar y amenorrh ea;Pract ice ID: 0001 Nayely Pearson [facility] 13:48:03 Uses combined oral contrace ption [id number] Completed 201703/22/2021 Encounte r for surveill ance of contrace ptive pills;Re corded Elsewher e: No Locat ion: [facility] S ource: EHR Personal Banking Advisor nelda: N Practi ce ID: 0001 Mukund lable Time: 10:15:00 AM [facility] 13:48:20 Problem Notes None recorded. Procedures Surgical History Date Name Laterality Status Provider Name and Address Organization Details Recorded Time 1 Date of Last Pap Smear completed Jeniffer Venegas [facility] 04/01/2022 09:36:01 6 delivery completed Le Todd [facility] 01/26/2020 09:47:14 Imaging Results None recorded. Procedure Notes None recorded. Medical Equipment None Reported. Allergies Allergen ID Allergen Name Allergen Category Reaction Reaction Severity Criticality Documentation Date Start Date Code Code System Note Provider Name and Address Organization Details Recorded Time 1491 Product containin g penicilli n (product) medicatio n Not available Not available Not available 01/26/2020 [id number] SNOMED [place] P[place]ton [facility] 0 09:47:30 Medications Name Sig Start Date Stop Date Status Note LastModified by Organization Details LastModified Time Prometriu m 200 mg capsule take 1 capsule by oral route every day for 10 days in the evening per 28 day cycle 10/27 completed Prescrib ed Elsewher e: No Locat ion: [facility] odify By: rodrigo keller DateTime : 10/17/19 18 01:25:05 PM Not Available Not Available Not Available Compazine 10 mg tablet take 1 tablet by oral route 3 times every day 08/14 completed Prescrib ed Elsewher e: No Locat ion: [facility] odify By: heri benitezunteverardo DateTime : 12/14/19 17 02:26:04 PM Not Available Not Available Not Available ciproflox acin 500 mg tablet 02/01 completed Not Available Not Available Not Available Macrobid 100 mg capsule take 1 capsule by oral route every 12 hours with food, as directed 06/03 completed Prescrib ed Elsewher e: No Locat ion: [facility] odify By: carly fleming DateTime : 01/15/20 17 04:51:59 PM Not Available Not Available Not Available prochlorp erazine 25 mg rectal supposito ry insert 1 supposit ory by rectal route 2 times every day 08/14 completed Prescrib ed Elsewher e: Yes Loca tion: [facility] odify By: heri benitezunteverardo DateTime : 01/10/20 17 09:00:00 AM Not Available Not Available Not Available fluoxetin e 20 mg capsule TAKE 1 CAPSULE BY MOUTH EVERY DAY active Not Available Not Available No t Available Bactrim DS 800 mg-160 mg tablet take 1 tablet by oral route every 12 hours 07/04 completed Prescrib ed Elsewher e: No Locat ion: [facility] M odify By: heri parks DateTime : 12/18/19 03:15:00 PM Not Available Not Available Not Available 07/19 (28) 1 mg-20 mcg (21)/75 mg (7) tablet TAKE 1 TABLET BY MOUTH EVERY DAY 04/01 completed Not Available Not Available Not Available Slynd 4 mg (28) tablet TAKE 1 TABLET BY MOUTH EVERY DAY active Not Available Not Available No t Available Vitals Date Recorded Body height Body mass index (BMI) Body weight Systolic And Diastolic Provider Name and Address Organization Details Last Updated DateTime 01/02/2022 162.56 cm 23.3 kg/m2 98452.56 g 114/76 mm[Hg] Jeniffer [facility] 01/02/2022 16:01:11 Date Recorded Body height Body mass index (BMI) Body weight Systolic And Diastolic Provider Name and Address Organization Details Last Updated DateTime 02/02/2020 162.56 cm 22.8 kg/m2 61419.79 g 109/71 mm[Hg] Le Todd [facility] 02/02/2020 10:32:10 Date Recorded Body height Body mass index (BMI) Body weight Systolic And Diastolic Provider Name and Address Organization Details Last Updated DateTime 03/27/2021 162.56 cm 23.7 kg/m2 75004.75 g 106/72 mm[Hg] Nayely Pearson [facility] 03/27/2021 09:57:45 Date Recorded Body height Body mass index (BMI) Body weight Systolic And Diastolic Provider Name and Address Organization Details Last Updated DateTime 04/01/2022 162.56 cm 23.7 kg/m2 96153.47 g 103/67 mm[Hg] Jeniffer Venegas [facility] 04/01/2022 09:35:00 Social History Question Answer Notes LastModified by Organizat ion Details LastModified Time Tobacco Smoking Status [facility] 04/01/2022 09:18:23 Do You Have An Advance Directive? No [email or web address] Information n ot available 03/27/2021 Are You Blind Or Do You Have Difficulty Seeing? No [email or web address] Information n ot available 03/27/2021 What Is Your Level Of Caffeine Consumption? Heavy [email or web address] Information not available 03/27/2021 How Much Tobacco Do You Chew? None [email or web address] Information not available 03/27/2021 In The 14 Days Before Symptom Onset, Have You Had Close Contact With A Laboratory-confirm ed COVID-19 While That Case Was Ill? No [email or web address] Information n ot available 03/27/2021 In The 14 Days Before Symptom Onset, Have You Had Close Contact With A Person Who Is Under Investigation For COVID-19 While That Person Was Ill? No [email or web address] Information not available 03/27/2021 Have You Been To An Area Known To Be High Risk For COVID-19? No [email or web address] Information not available 03/27/2021 Are You Deaf Or Do You Have Serious Difficulty Hearing? No [email or web address] Information not available 03/27/2021 What Type Of Diet Are You Following? REGULAR [email or web address] Information n ot available 03/27/2021 What Is The Highest Grade Or Level Of School You Have Completed Or The Highest Degree You Have Received? [id number] [email or web address] Information not available 03/27/2021 Are There Any Guns Present In Your Home? No [email or web address] Information not available 03/27/2021 Do You Use Protection During Sex? No [email or web address] Information not available 03/27/2021 Do You Use Your Seat Belt Or Car Seat Routinely? Yes [email or web address] Information not available 03/27/2021 Do You Have Smoke And Carbon Monoxide Detectors In Your Home? Yes [email or web address] Information not available 03/27/2021 How Much Tobacco Do You Smoke? No [email or web address] Information not available 03/27/2021 Do You Use Sunscreen Routinely? No [email or web address] Information not available 03/27/2021 Have You Used IV Drugs? No [email or web address] Information not available 03/27/2021 Do You Have Difficulty Walking Or Climbing Stairs? No [email or web address] Information not available 04/01/2022 Sex: Unknown Functional Status Question Answer Note LastModified by Organizat ion Details LastModified Time Do you use any illicit or recreational drugs? No [email or web address] Information not available 03/27/2021 What is your level of alcohol consumption? None Information not available 02/02/2020 Are you able to walk independently without assistance or assistive devices? YESWOREST [email or web address] Information not available 03/27/2021 Are you able to care for yourself independently? 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 No Information not available 04/01/2022 What is your exercise level? None Information not available 02/02/2020 Mental Status Question Answer Note LastModified by Organization D etails LastModified Time Do you feel stressed (tense, restless, nervous, or anxious, or unable to sleep at night)? [id number] [email or web address] Information not available 03/27/2021 Family History Relationship Description Onset Age of this Age Resolved Age Notes LastModified by Organization Details LastModified Time Father No current problems or disability [email or web address] Not available 03/22 13:44:58 Mother No current problems or disability [email or web address] Not available 03/22 13:44:58 Notes:Cancer risk form 03/13 Medical History Condition Response Other Y Gynecological History Statement/Question Response On BCP's at Conception? N N Was last menstrual period normal N STIs/STDs N HPV Vaccine N Duration of Flow (days) 0 16 Current Control Method BCPs Age at First Child 28 Frequency of Cycle (Q days) 28 Sexually Active? Y Menses Monthly Y Age of first menstrual cycle 18 Date of Last Pap Smear 03/27/2021 Sexual Problems? N Desired Control Method BCPs LMP Unknown N Obstetrics History GPAL:G 3 P 3 0 0 3 Type Value Full Term 3 Living 3 Total 3 Past Encounters Encounter ID Performer Location Encounter Start Date Encounter Closed Date Diagnosis/Indication Diagnosis SNOMED-CT Code Diagnosis ICD10 Code Diagnosis IMO Codes Diagnosis Note [id number] Keyonna Hathaway CNM [place] [address] [address] 02/02/2020 10:22:42 02/02/2020 10:57:43 Gynecologic examination 38078118 Z01.419 Take Calcium with Vitamin D 1200mg daily if not receiving in daily diet. It is strongly advised to have an annual flu shot and up can obtain at most pharmacies . If you have not had a TDap shot in the last 10 years you should obtain one as well. Discussed with patient & provided with informatio n regarding Gardisil vaccine to prevent the 4 strains for HPV that cause cervical cancer if under age 26. Encourage safe sexual practices, to use condoms and limit partners if not already in a monogamous relationsh ip. Do monthly self breast exams. Have mammogram yearly or every other year depending on family history. BRCA testing is now available for patients with strong genetic history of female cancer. If interested contact the office. Engage in daily exercise of low impact aerobic exercise 45-60 minutes 4-5 times weekly. Avoid tobacco and illicit drugs as well as using moderation with alcohol intake less than 1-2 8 oz beverages daily. This lifestyle behavior pattern will lead to less health conditions and longer life span. If BMI greater than 25 weight watchers or dietary consult advised. Patient received above instructio ns, and questions have been answered. If you have any questions please call or respond to this email. Patient was made aware of the patient portal and may obtain a paper copy of today's plan if desired. Contracept ion care management [id number] Z30.9 Pt has been having headaches/ migraines (without aura) for the last 6 months. She feels it is related to her control. She has a very light cycle if any but it does happen 3-4 days before her cycle every month. We have discussed all control options and safety related to migraines. She does not have aura before her migraines. She would like to switch to mirena IUD. If her headaches do not resolve with switching contracept ion I would like her to see a neurologis t. Since she does not have cycles I would like for her to abstain x 2 weeks and have hcg drawn the day prior to IUD placement. Explained why this is necessary and the risk if a were to be in process. Pt verbalized understand ing of the above. She will call to check her insurance benefits. [id number] [facility]onna HathawayPATRICIATresa [place] [address] [address] 03/27/2021 09:44:31 03/27/2021 10:37:42 Gynecologic examination [id number] Z01.419 Z11.51 Take Calcium with Vitamin D 1200mg daily if not receiving in daily diet. It is strongly advised to have an annual flu shot and up can obtain at most pharmacies . If you have not had a TDap shot in the last 10 years you should obtain one as well. Discussed with patient & provided with informatio n regarding Gardisil vaccine to prevent the 4 strains for HPV that cause cervical cancer if under age 26. Encourage safe sexual practices, to use condoms and limit partners if not already in a monogamous relationsh ip. Do monthly self breast exams. Have mammogram yearly or every other year depending on family history. BRCA testing is now available for patients with strong genetic history of female cancer. If interested contact the office. Engage in daily exercise of low impact aerobic exercise 45-60 minutes 4-5 times weekly. Avoid tobacco and illicit drugs as well as using moderation with alcohol intake less than 1-2 8 oz beverages daily. This lifestyle behavior pattern will lead to less health conditions and longer life span. If BMI greater than 25 weight watchers or dietary consult advised.Oconnell ppy with ocp and would like to continue. Consent read and signed. Patient received above instructio ns, and questions have been answered. If you have any questions please call or respond to this email. Patient was made aware of the patient portal and may obtain a paper copy of today's plan if desired. History of depression 18 [id number] Z86.59 Doing great and would like to contiue on Fluoxetine . [id number] NEELIMA Schwartz [place] [address] [address] 01/02/2022 15:50:26 01/08/2022 16:35:59 Contraception care management [id number] Z30.9 Options discussed, will switch to POPDenies hx of DVT/PE, HTN, liver disease, cancer, stroke/MID iscussed all control options in great detail. Pt would like to start POP. She is aware of the risks and benefits. She has contraindi cations to use of OCP or other estrogen containing hormonal therapy. Pt will start her pills on the first friday following the start of her period. She is aware it is not effective for control the first month. She is also aware of the importance of taking at the same time every day. Encouraged use of condoms as the pill does not protect against STD's. Will return in 3 months for med check. Consent was read and signed. Pt verbalized understand ing.-She will start the new pills now-Magnes ium supplement s may help with leg cramping in upper thighs, patient to f/u with PCP about this. Red flag symptoms discussed (warm/hot/ red/pain/s igns of VTE)-RTC in 3 months for med check Time spent in visit is a total of 30 mins with at least 50% of visit consisting of counseling and review of plan of care. [id number] NEELIMA Schwartz [place] [address] [address] 04/01/2022 09:18:09 04/01/2022 10:06:06 Gynecologic examination [id number] Z01.419 Suggested Calcium with Vitamin D 1200-1500m g daily. Patient advised to get an annual flu shot in the fall and she could obtain at [facility] or [facility] take care clinic. Also to obtain TDap vaccinatio n if you have not had one in the last 10 years. Recommend yearly mammograms . Encouraged monthly self breast exams. Encourage safe sexual practices, to use condoms and limit partners if not already in a monogamous relationsh ip. Engage in daily exercise of low impact aerobic exercise 45-60 minutes 4-5 times weekly. Avoid tobacco and illicit drugs as well as using moderation with alcohol intake less than 1-2 8 oz beverages daily. This lifestyle behavior pattern will lead to less health conditions and longer life span. If BMI greater than 25 weight watchers or dietary consult advised. All questions have been answered. Patient appears to understand informatio n, but if you have any questions please call or respond to this email. [employer] - Bhupinder. Happy with this method. No negative SE. No longer having migraines. Would like to continue. Samples given and rx sent to patient pharmacy.L ast pap 03/27/2021 NILM, HR HPV (-)Hx of abnormal pap around 6 years ago per patient with (-) colposcopy Pap done todaySTI testing added to papFirst mammogram order given to patientGen etic testing, discussed. No family hx of breast or ovarian cancerEnco uraged patient to have annual exam with PCPRTC in 1 year or sooner if needed R/B of medication s discussed and accepted by patient Contracept ion care management [id number] Z30.9 3 sample packs given : [id number] 07/2023 Screening for malignant neoplasm of breast [id number] Z12.39 Depressive disorder 9938 9007 F32.A Doing well on fluoxetine , would like to continue.H appy with this dosing, no negative SE.No thoughts of harming herself or others.Ref ills sent Health Concerns Section Related Observation LastModified by Organization Detai ls LastModified Time None Recorded Concern Status LastModified by Organization Details LastModified Time None Recorded Advance Directives Directive N: Payers Insurance Date Sequence Insurance Name Policy Number Policy Timmons Covered Member ID Timmons Member ID Guarantor Name 04/01/2022 1 [facility] (MEDICAID HMO) [id number] Aysha Gibson [id number] Aysha Gibson Notes Date Note Type Note Provider Name and Address Organization Details Recorded Time 0 text/html Annual GYNReported by PatientGenitourinary symptomsFor menstrual cycle, patient reportsnormal menses. For urinary symptoms, patient reportsno hematuriaandno incontinence. For vulva, patient reportsno genital lesion. For vagina, patient reportsnormal vaginal discharge.Breast symptomsFor breast, patient reportsno breast pain,no breast lump, andno nipple discharge.Endocrine symptomsFor sexual complaints, patient reportsno sexual complaints,no pain during intercourse, andnormal libido. For menopausal symptoms, patient reportsno menopausal symptomsandnormal vaginal lubrication.Psychological symptomsFor psychological symptoms, patient reportsno depression,no anxiety, andno pmdd. Keyonna jo [facility] 02/02/2020 11:04:45 1 text/html Annual GYNReported by PatientGenitourinary symptomsFor menstrual cycle, patient reportsnormal menses. For urinary symptoms, patient reportsno hematuriaandno incontinence. For vulva, patient reportsno genital lesion. For vagina, patient reportsnormal vaginal discharge.Breast symptomsFor breast, patient reportsno breast pain,no breast lump, andno nipple discharge.Endocrine symptomsFor sexual complaints, patient reportsno sexual complaints,no pain during intercourse, andnormal libido. For menopausal symptoms, patient reportsno menopausal symptomsandnormal vaginal lubrication.Psychological symptomsFor psychological symptoms, patient reportsno depression,no anxiety, andno pmdd. Keyonna jo, [facility] 03/27/2021 10:14:27 2 text/html Here today to discuss control, has noticed increased migraines with current method during her placebo pills.This has been happening for the last 4-5 months.She has been noticing some leg cramping in her bilateral upper thighs during her periods. Cramping will resolve spontaneously after menses.No warm/hot/or red area. NEELIMA Schwartz [address], [place], [address], [facility] 01/03/2022 09:09:00 2 text/html Annual GYNReported by PatientGenitourinary symptomsFor menstrual cycle, patient reportsnormal menses. For urinary symptoms, patient reportsno hematuriaandno incontinence. For vulva, patient reportsno genital lesion. For vagina, patient reportsnormal vaginal discharge.Breast symptomsFor breast, patient reportsno breast pain,no breast lump, andno nipple discharge.ContraceptionFo r current contraception, patient reportsoral contraceptives.Endocrine symptomsFor sexual complaints, patient reportsno sexual complaints,no pain during intercourse, andnormal libido. For menopausal symptoms, patient reportsno menopausal symptomsandnormal vaginal lubrication.Psychological symptomsFor psychological symptoms, patient reportsno depression,no anxiety, andno pmdd.Preventative measuresFor preventive measures, patient reportsencourage self breast examination,encourage regular exercise,encourage no tobacco use, andencourage regular mammograms starting age 40. NEELIMA Schwartz [address], [place], [address], [facility] 04/01/2022 10:02:09 OBGyn Episode Ob Episode Information Episode Created Date Number of Fetuses Patient Bloodtype Patient rh Status Prepregnancy Weight lbs Domestic Partner Domestic Partner Phone Father Name Breeding Manager Status 02/02/20 20 1 CLOSED Fetus Data First Name Last Name Admitted to NICU Weight (g) Sex Living Outcome Pediatric Complications Fetus ID Race Codes Race Delivery Type 3231.84 3 M Full Term [id number] Vaginal Delivery Dung Calculation Initial Dung Date Initial Exam Date Initial Exam Provider Initial Ultrasound Date Last Menstrual Period Date Ultra Sound Weeks Gestation 0 Eighteen To Twenty Week Dung Update Ultra Sound Date Fundal Height At Umbil Quickening Date Ultra Sound Latest Weeks Gestation Final Dung Confirmed By Final Dung Confirmed Date Final Dung Date Ultra Sound Latest Days Gestation 0 0 Menstrual History Last Menstrual Date Menses Monthly On Bcp Conception Prior Menses Frequency Hcg Plus Date Menarche Onset Age Delivery Information Delivery Date Delivery Type Labor Anesthesia Weeks Gestation Incision Type Labor Labor Length Hrs Delivered By Post Complications Tubal Sterilization Discharge Date Comments 9 40 Discharge Information Feeding Method Contraceptive Method Maternal HG B and HCT Levels Ob Episode Information Episode Created Date Number of Fetuses Patient Bloodtype Patient rh Status Prepregnancy Weight lbs Domestic Partner Domestic Partner Phone Father Name Breeding Manager Status 02/02/20 20 1 CLOSED Fetus Data First Name Last Name Admitted to NICU Weight (g) Sex Living Outcome Pediatric Complications Fetus ID Race Codes Race Delivery Type 3118.44 5 M Full Term 3536 V Back Dung Calculation Initial Dung Date Initial Exam Date Initial Exam Provider Initial Ultrasound Date Last Menstrual Period Date Ultra Sound Weeks Gestation 0 Eighteen To Twenty Week Dung Update Ultra Sound Date Fundal Height At Umbil Quickening Date Ultra Sound Latest Weeks Gestation Final Dung Confirmed By Final Dung Confirmed Date Final Dung Date Ultra Sound Latest Days Gestation 0 0 Menstrual History Last Menstrual Date Menses Monthly On Bcp Conception Prior Menses Frequency Hcg Plus Date Menarche Onset Age Delivery Information Delivery Date Delivery Type Labor Anesthesia Weeks Gestation Incision Type Labor Labor Length Hrs Delivered By Post Complications Tubal Sterilization Discharge Date Comments 8 39 previous c-secsion Discharge Information Feeding Method Contraceptive Method Maternal HG B and HCT Levels Ob Episode Information Episode Created Date Number of Fetuses Patient Bloodtype Patient rh Status Prepregnancy Weight lbs Domestic Partner Domestic Partner Phone Father Name Breeding Manager Status 02/02/20 20 1 CLOSED Fetus Data First Name Last Name Admitted to NICU Weight (g) Sex Living Outcome Pediatric Complications Fetus ID Race Codes Race Delivery Type 2494.75 6 Full Term 3537 Primary Dung Calculation Initial Dung Date Initial Exam Date Initial Exam Provider Initial Ultrasound Date Last Menstrual Period Date Ultra Sound Weeks Gestation 0 Eighteen To Twenty Week Dung Update Ultra Sound Date Fundal Height At Umbil Quickening Date Ultra Sound Latest Weeks Gestation Final Dung Confirmed By Final Dung Confirmed Date Final Dung Date Ultra Sound Latest Days Gestation 0 0 Menstrual History Last Menstrual Date Menses Monthly On Bcp Conception Prior Menses Frequency Hcg Plus Date Menarche Onset Age Delivery Information Delivery Date Delivery Type Labor Anesthesia Weeks Gestation Incision Type Labor Labor Length Hrs Delivered By Post Complications Tubal Sterilization Discharge Date Comments 6 38.2 GHTN, no n reassurin g FHR Discharge Information Feeding Method Contraceptive Method Maternal HG B and HCT Levels
--- OUTSIDE RECORDS SUMMARY | 2025-06-13 18:19 | XMS_ITS | Clinical Summary ---
Author Organization [facility] Address [address] [place] [address] Phone Care Team Providers Care Travel Assistant Name Role Phone Yusuf Jones Primary Care Provider Allergies Active Allergy Reactions Criticality Noted Date [...] Comments Blood Pressure 103/64 06/05/2022 6:20 PM SUPPORT SERVICES REP Pulse 80 06/05/2022 6:20 PM SUPPORT SERVICES REP Temperature 36.2 C (97.2 F) 06/05/2022 4:31 PM SUPPORT SERVICES REP Respiratory Rate 16 06/05/2022 4:31 PM SUPPORT SERVICES REP Oxygen Saturation 100% 06/05/2022 6:20 PM SUPPORT SERVICES REP Inhaled Oxygen Concentration - - Weight 59 kg (130 lb) 06/05/2022 4:31 PM SUPPORT SERVICES REP Height 162.6 cm (5' 4) 06/05/2022 4:31 PM SUPPORT SERVICES REP Body Mass Index 22.31 06/05/2022 4:31 PM SUPPORT SERVICES REP Plan of Treatment Health Maintenance Due Date Last Done Comments Hepatitis C Virus (HCV) Screening 1982 Varicella Immunization (1 of 2 - 13+ 2-dose series) 1995 Hepatitis B Immunization (1 of 3 - 19+ 3-dose series) 2001 Pap Smear 2003 Cervical Cancer Screening (CCS) 02/26/2012 HPV/Cotest 02/26/2012 Influenza Immunization (#1) 2025 SARS-COV-2 Immunization ( - season) 2025 Respiratory Syncytial Virus (RSV) Immunization (Adult) (1 - 1-dose 75+ series) 2057 DTaP/Tdap/Td Immunization Discontinued 2017, 05/07/2016, 03/15/1988, Additional history exists TdaP Immunization Completed 07/18/2017, 05/07/2016 Human Papillomavirus (HPV) Immunization (No Doses Required) Completed Meningococcal Immunization (ACWY) Aged Out No longer eligible based on patient's age to complete this topic Pneumococcal Immunization Combined Aged Out No longer eligible based on patient's age to complete this topic Rotavirus Immunization Aged Out No lo nger eligible based on patient's age to complete this topic Insurance MEDICAID [place] Care Teams Travel Assistant Relationship Specialty Start Date End Date Yusuf Jones PAC [address] [place] [address] PCP - General Physician Plat[place] 12/06/15
== END 2025-06-13 17:38 | disposition home or self-care (01) ==
PROVIDERS: Emergency Provider Registered Nurse; PCP Nurse Practitioner Adult Health
DX: N39.0 Urinary tract infection, site not specified (principal); F41.9 Anxiety disorder, unspecified; F32.A Depression, unspecified
CPT/HCPCS: 81003; 87086; 99213; G0463